=== PATIENT | male | born 1955 | race Caucasian/White ===

== ENCOUNTER 2022-09-18 08:16 | Outpatient (RCR) | payer OTHER, SELFPAY | END 2022-10-05 23:59 | disposition home or self-care (01) | LOC: SPT 08:16 | PROVIDERS: Visit Provider Nurse Practitioner Family | DX: M25.569 Pain in unspecified knee (principal) | CPT/HCPCS: 97113; 97161 ==

== ENCOUNTER 2022-10-06 06:00 | Outpatient (RCR) | payer OTHER, SELFPAY | END 2022-11-05 23:59 | disposition home or self-care (01) | LOC: SPT 06:00 | PROVIDERS: Visit Provider Nurse Practitioner Family | DX: M25.569 Pain in unspecified knee (principal) | CPT/HCPCS: 97113 ==

== ENCOUNTER → 2022-12-01 12:16 | Outpatient (BNVA) | payer OTHER, SELFPAY | PROVIDERS: Visit Provider Thoracic Surgery (Cardiothoracic Vascular Surgery) | DX: S22.42XA Multiple fractures of ribs, left side, initial encounter for closed fracture (principal); V98.8XXA Other specified transport accidents, initial encounter; Z87.891 Personal history of nicotine dependence | CPT/HCPCS: 99203 ==

== ENCOUNTER 2023-09-28 10:17 | Outpatient (RCR) | payer OTHER, SELFPAY | END 2023-10-06 23:59 | disposition home or self-care (01) | LOC: SPT 10:17 | PROVIDERS: PCP Nurse Practitioner Family; Visit Provider Nurse Practitioner Family | DX: M62.81 Muscle weakness (generalized) (principal) | CPT/HCPCS: 97113; 97161 ==

== ENCOUNTER 2023-10-07 06:00 | Outpatient (RCR) | payer OTHER, SELFPAY | END 2023-11-06 23:59 | disposition home or self-care (01) | LOC: SPT 06:00 | PROVIDERS: PCP Nurse Practitioner Family; Visit Provider Nurse Practitioner Family | DX: M62.81 Muscle weakness (generalized) (principal) | CPT/HCPCS: 97113 ==

== ENCOUNTER 2023-11-07 06:30 | Outpatient (RCR) | payer OTHER, SELFPAY | END 2023-12-06 23:59 | disposition home or self-care (01) | LOC: SPT 06:30 | PROVIDERS: PCP Nurse Practitioner Family; Visit Provider Nurse Practitioner Family | DX: M62.81 Muscle weakness (generalized) (principal) | CPT/HCPCS: 97113 ==

== ENCOUNTER 2023-12-07 06:00 | Outpatient (RCR) | payer OTHER, SELFPAY | END 2023-12-23 23:59 | disposition home or self-care (01) | LOC: SPT 06:00 | PROVIDERS: PCP Nurse Practitioner Family; Visit Provider Nurse Practitioner Family | DX: M62.81 Muscle weakness (generalized) (principal) | CPT/HCPCS: 97113 ==